=== PATIENT | female | born 1940 | race Caucasian/White ===

== ENCOUNTER 2019-10-29 18:17 | Emergency (ER) | payer MEDICARE, OTHER ==
--- OUTSIDE RECORDS SUMMARY | 2019-10-29 18:49 | XMS REPORT | Continuity of Care Document ---
:1940 External Reference #:[id number] Author Name Ban Gonsalves NP (transmitted by agent of provider Victoria Workman) Address [address] [facility], [place] [address] Care Team Providers Name Role Phone Niharika Washburn MD - Internal Medicine Care Team Information Database Architect Problems Description No Information Available Social History Type Date Description Comments Sex Unknown Tobacco Use Start: Unknown Never Smoked Cigarettes Smoking Status Reviewed: 09/22/19 Never Smoked Cigarettes ETOH Use Rarely consumes alcohol Tobacco Use Start: Unknown Patient has never smoked Recreational Drug Use Denies Drug Use Exercise Type/Frequency Exercises regularly walk 30 minutes daily Allergies, Adverse Reactions, Alerts Active Allergies Reaction Severity Comments Date Tramadol vomiting 07/04/2019 Medications Active Medications SIG Qnty Indications Ordering Date Provider Pantoprazole Sodium 1 by mouth every Niharika Washburn MD 08/01/2019 day, alternating 20mg Tablets DR with 40 mg every other day Alendronate Sodium 1 by mouth weekly 12tabs Niharika Washburn MD 35mg Tablets Pravastatin Sodium 1 tablet once daily 30tabs Niharika Washburn MD at bedtime 20mg Tablets Calcium taken only when Unknown dietary calcium is [id number] below 1200 mg /day Chewtabs Vitamin K2 1 by mouth twice Unknown 100mcg daily Capsules Coq10 1 by mouth once a Unknown 100mg Capsules day Fish Oil 1 tab by mouth Unknown 1000mg twice a day Capsules Pantoprazole Sodium 1 by mouth every Unknown day, alternating 40mg Tablets DR with 20 mg tablets every other day. Vitamin D 1 tablet twice Unknown 1000Unit daily Tablets Cranberry 1 by mouth every Unknown 425mg day to prevent UTI Capsules Probiotic 50 billion twice a Unknown Capsules week Melatonin 1 by mouth at Unknown 1mg bedtime Capsules Ipratropium [place] 2 sprays to each Unknown nare twice a day 0.06% Solution Magnesium take one Unknown 300mg capsule/tablet Capsules daily by mouth History Medications Vitamin A Palmitate 2 by mouth every Niharika Washburn MD 08/01/2019 - 2018 day [id number] Tablets Immunizations Description No Information Available Vital Signs Date Vital Result Comment 09/21/2019 1:04pm Height 60 inches 5'0" Weight 134.00 lb Heart Rate 80 /min BP Systolic 139 mmHg BP Diastolic 67 mmHg Body Temperature 97.0 F O2 % BldC Oximetry 99 % BMI (Body Mass Index) 26.2 kg/m2 09/13/2019 2:30pm Height 60 inches 5'0" Weight 133.38 lb Heart Rate 88 /min BP Systolic Sitting 134 mmHg BP Diastolic Sitting 77 mmHg Body Temperature 97.8 F O2 % BldC Oximetry 98 % BMI (Body Mass Index) 26.0 kg/m2 Results Test Acquired Date Facility Test Result H/L Range Note Anti-Thyroid 09/21/2019 [facility] Thyroperoxidase AB <pending> Antibodies [address] [place] [address] [phone] Thyroglobulin AB <pending> Laboratory test 09/21/2019 [facility] CRP High <pending> finding [address] [place] [address] [phone] T3 Free <pending> T3 Reverse <pending> T3 Total <pending> Thyroid Panel 09/21/2019 [facility] Free T4 (Free <pending> [address] Thyroxine) [place] [address] [phone] Thyroxine <pending> TSH (Thyroid Stim Horm) <pending> Vitamin B12 And Folate 09/21/2019 [facility] Vitamin B12 < pending> Serum [address] [place] [address] [phone] Folic Acid (Folate) <pending> CBC Auto 08/02/2019 [facility] White Blood 7.1 10^3/uL Normal 3.5-10.[address] [place] [address] [phone] Red Blood Count 4.74 10^6/uL Normal 3.70-4.87 Hemoglobin 13.9 g/dL Normal 12.0-16.0 Hematocrit 42 % Normal 35-47 Mean Corpuscular Volume 88 fL Normal 80-97 Mean Corpuscular Hemoglobin 29 pg Normal 27-31 Mean Corpuscular HGB Conc 34 g/dL Normal 31-36 Red Cell Distribution Width 14 % Normal 10-15 Platelet Count 238 10^3/uL Normal 150-450 Mean Platelet Volume 8.3 fL Normal 7.4-10.4 Abs Neutrophils 5.1 10^3/uL Normal 1.5-7.7 Abs Lymphocytes 0.8 10^3/uL Low 1.0-4.8 Abs Monocytes 0.7 10^3/uL Normal 0-0.8 Abs Eosinophils 0.4 10^3/uL Normal 0-0.6 Abs Basophils 0.0 10^3/uL Normal 0-0.2 Abs Nucleated RBC 0.0 10^3/uL Granulocyte % 71.5 % Lymphocyte % 11.9 % Monocyte % 9.9 % Eosinophil % 6.1 % Basophil % 0.6 % Nucleated Red Blood Cells % 0.0 Comp Metabolic 08/02/2019 [facility] Sodium 136 mmol/L Normal 135-[address] [place] [address] [phone] Potassium 4.4 mmol/L Normal 3.5-5.0 Chloride 103 mmol/L Normal 101-111 Co2 Carbon Dioxide 30 mmol/L Normal 22-32 Anion Gap 3 mmol/L Normal 2-11 Glucose 97 mg/dL Normal 70-100 Blood Urea Nitrogen 20 mg/dL Normal 6-24 Creatinine 0.78 mg/dL Normal 0.51-0.95 BUN/Creatinine Ratio 25.6 High 8-20 Calcium 9.2 mg/dL Normal 8.6-10.3 Total Protein 6.5 g/dL Normal 6.4-8.9 Albumin 4.4 g/dL Normal 3.2-5.2 Globulin 2.1 g/dL Normal 2-4 Albumin/Globulin Ratio 2.1 Normal 1-3 Total Bilirubin 0.80 mg/dL Normal 0.2-1.0 Alkaline Phosphatase 54 U/L Normal 34-104 Alt 14 U/L Normal 7-52 Ast 17 U/L Normal 13-39 Egfr Non- 71.2 >60 Egfr 86.2 >60 1 Laboratory 08/02/2019 [facility] TSH (Thyroid 1.25 Normal 0.34 -5.60 test finding [address] Stim Horm) mcIU/[place] [address] [phone] Laboratory 07/14/2019 [facility] In House Hemoglobin 6.0 5-7 test finding A1c 1 Because ethnic data is not always readily available, this report includes an eGFR for both -Americans and non- Americans. The National Kidney Disease Education Program (NKDEP) does not endorse the use of the MDRD equation for patients that are not between the ages of 18 and 70, are , have extremes of body size, muscle mass, or nutritional status, or are non- or non-. According to the National Kidney Foundation, irrespective of diagnosis, the stage of the disease is based on the level of kidney function: Stage Description GFR(mL/min/1.73 m(2)) 1 Kidney damage with normal or decreased GFR 90 2 Kidney damage with mild decrease in GFR 60-89 3 Moderate decrease in GFR 30-59 4 Severe decrease in GFR 15-29 5 Kidney failure <15 (or dialysis) Procedures Date Code Description Status 07/29/2019 25160725 Mammogram Completed 09/10/2018 [id number] Bone Mineral Density Test Completed 01/27/2017 [id number] Bone Mineral Density Test Completed 02/07/2015 [id number] Bone Mineral Density Test Completed 09/25/2010 [id number] Bone Mineral Density Test Completed Medical Devices Description No Information Available Encounters Type Date Location Provider Dx Diagnosis Office Visit 09/13/2019 [facility] Josie Washburn MD M81.0 Age-related 2:20p Medicine - [facility] osteoporosis w/o current pathological fracture R19.7 Diarrhea, unspecified Office Visit 08/01/2019 2:20p [facility] Washburn [facility] R53.83 [facility] Di[facility], unspecified Office Visit 07/14/2019 3:00p [facility] Jos[facility] Washburn M81.0 [facility] fracture E78.5 Hyperlipidemia, unspecified K21.9 Gastro-esophageal reflux disease without esophagitis R73.03 Prediabetes Office Visit 07/04/2019 11:00a [facility] Tin Ritchie, S80.01xA Contusion of at Lucille Carter right knee, initial encounter S76.111A Strain of right quadriceps muscle, fascia and tendon, init Assessments Date Code Description Provider 09/21/2019 R53.83 Other fatigue Ban Gonsalves NP 09/21/2019 K21.9 Gastro-esophageal reflux disease without Ban Gonsalves NP esophagitis 09/21/2019 R73.03 Prediabetes Ban Gonsalves NP 09/21/2019 R19.7 Diarrhea, unspecified Ban Gonsalves NP 09/13/2019 M81.0 Age-related osteoporosis without current Niharika Washburn MD pathological fracture 09/13/2019 R19.7 Diarrhea, unspecified Niharika Washburn MD 08/30/2019 M81.0 Age-related osteoporosis without current Xander Meade MD pathological fracture 08/30/2019 M54.6 Pain in thoracic spine Xander Meade MD 08/01/2019 R53.83 Other fatigue Niharika Washburn MD 08/01/2019 R19.7 Diarrhea, unspecified Niharika Washburn MD 07/14/2019 M81.0 Age-related osteoporosis without current Niharika Washburn MD pathological fracture 07/14/2019 E78.5 Hyperlipidemia, unspecified Niharika Washburn MD 07/14/2019 K21.9 Gastro-esophageal reflux disease without Niharika Washburn MD esophagitis 07/14/2019 R73.03 Prediabetes Niharika Washburn MD 07/04/2019 S80.01xA Contusion of right knee, initial encounter Tin Ritchie M.D. 07/04/2019 S76.111A Strain of right quadriceps muscle, fascia and Tin Ritchie M.D. tendon, initial encounter Plan of Treatment Future Appointment(s):10/25/2019 11:00 am - Ban Gonsalves NP at [facility] [place]09/21/2019 - Ban Gonsalves, NPR53.83 Other fatigueNew Labs :Anti-Thyroid Antibodies Screen, Ordered: 09/21/19CRP High Sensitivity, Ordered : 09/21/19T3 Free, Ordered: 09/21/19T3 Reverse, Ordered: 09/21/19T3 Total, Ordered: 09/21/19Thyroid Panel, Ordered: 09/21/19Vitamin B12 And Folate Serum, Ordered: 09/21/19Follow up:follow up in 4 weeks - 45 minutesRecommendations: Fatigue is multi-factorial food sensitivities can play a role. An elimination diet is a validated approach to try to pin point food sensitivities. Increase healthy fats in the diet with cold pressed extra virgin olive oil, flax seed, hemp oil, fish oil (wild caught EPA/DHA). Nuts, seeds, avocado. Stress can play a large role in fatigue. Daily stress relaxation techniques. Sleep: sleeping 8 hours a day. Exercise: 30-60 minutes daily of exercise. Keeping your blood sugar stable removing high glycemic foods. Adrenal fatigue (HPA [place] dysregulation) - Lifestyle changes can make a difference. Stress is a huge class b driver. Sleep is very important as is diet and exercise. Consider stress reduction techniques. Screening Tests: It is important to be up to date on your screening tests for your age Great Resources: [employer] - free 10 week online program - HIGHLY recommend www.[employer] - low carb/keto website with meal plans, visual guides, and videos - lots of FREE resources Recommended Reading: Dr. Armendariz The End of Alzheimers Cookbooks; Dr. Fabian - Cooking for Life Dr. Mitchell Gonzalez??s - Ketotarian Dr. Castro - Fat for Fuel or KetoFast COOKBOOKS - Podcasts: Broken Brain Series The [facility] Farmacy Focus should be on NUTRIENT DENSE foods. Low carb - goal to start with 30 - 50 grams of carbs gfawvG29.9 Gastro-esophageal reflux disease without esophagitisRecommendations:A functional medicine approach to GERD 1. Food sensitivities Sensitivities, especially to things like gluten or dairy, inhibit your digestion. When your body can??t digest its food, the food sits in your stomach and can??t pass through the rest of your system. This excess of food in your stomach cancause acid reflux. I recommend that all of my patients remove gluten and dairy from their diets, and for some with complex chronic diseases I highly recommend removing all grains and legumes from the diet as well. Don??t eat within 3 hours before bed. 2. Poor Diet GERD is a modern day disease. Ourhunter/gatherer ancestors didn??t have it, and since our genes haven??t changed, we should consider one thing that has changed completely: our diet. Certain foods aggravate the symptoms of GERD, especially alcohol, caffeine , and fried foods. Additionally, overindulging in these foods leads to weight gain. Excess weight pushes up against your stomach, causing your LES to spasm and let stomach acid spill out. Forego processed food for real, whole foods. Try an elimination diet to see which foods exacerbate your symptoms. Ditch alcohol, fried foods, and acidic substances like coffee for good. And of course , pay attention to your body and learn to recognize its hunger and satiety signals. Eliminate alcohol, caffeine, citrus, tomato-based, and spicy foods. 3. Too little stomach acid Contrary to popular belief, GERD is often not caused by an overproduction of stomach acid. Stomach acid doesn??t wind up in your esophagus because it spills out due to excess. It spills out because the LES relaxes when it shouldn??t. Too little stomach acid however is a large contributor to GERD, as it prevents digestion. Stomach acid has an important role in the body. Not only does it break food down into amino acids, it also kills bacteria, yeast, viruses, and parasites that enter our digestive tract. Low stomach acid is linked to yeast overgrowth, B12 deficiency, parasites, and even anxiety and depression. Try supplementing with hydrochloric acid (HCL), which is the main digestive acid in the stomach. I??ve found that most symptoms of GERD disappear with HCL supplementation. Please see the HCL challenge instructions 4. Stress Often overlooked, stress has a profound effect on the body. It manifests in physical symptoms such as an erratic, racing heartbeat, muscle tension and twitches, and digestive issues like diarrhea and reflux. I suggest to all my patients that they prioritize stress reduction. Take care of yourself by adopting some stress-relieving strategies, such as exercise, meditation, and art. If you are having trouble relaxing, try a yoga class or a guided meditation. 5. Small IntestinalBacteria Overgrowth (SIBO) Our intestinal microflora are central to our wellbeing. An imbalance in the types and quantities of certain bacteria within our digestive tract can lead to all kinds of gastric complications. It has long been understood that H. pylori bacteria are the major cause of peptic ulcers (painful sores in the stomach and small intestinal lining), and it is beginning to be suspected that they are involved in GERD. Try Some Natural Remedies to Help Soothe the Gut Take 2 to 3 capsules of digestive enzymes with each meal. Re-inoculate the gut with healthy bacteria by using probiotics. Try 75 mg of zinc carnosine twice a day between meals ?? this has been extensively studied and is used frequently in [place]. Take 3 to 5 grams of glutamine powder in water twice a day to help heal the gut lining. Try 200 to 400 mg of magnesium citrate or glycinate twice a day.R73.03 PrediabetesRecommendations:Natural ways to improve blood sugar balance You don??t have to settle for a future of diabetes. Intervene now with these tips for restoring a healthy blood sugar/insulin balance. 1. Find your baseline. The labs I run on my patients to assess their blood sugar balance and check for insulin resistance are: Fasting blood sugar: Optimal Range: 75 to 90 mg/dL Hgb A1C: Optimal Range: < 5.3 percent Triglycerides: Optimal Range: &lt ; 100 mg/dL HDL: Optimal Range: 59 to 100 mg/dL 2. Sip on matcha. EGCGis a compound in green tea, EGCG has demonstrated a stabilizing effect on blood sugar levels. Drinking the whole green tea leaf in the form of matcha powder is a great way to up your ECGC intake 3. Try alpha-lipoic acid. In several studies , alpha-lipoic acid supplements helped balance blood sugar levels and improved insulin resistance. This antioxidant also strengthens immunity, improves energy production in cells, protects brain cells against excitotoxicity, and helps the body remove excess toxic metals. For blood sugar control, take 200 milligrams three times a day. 4. Take magnesium. Accordingto research published in the medical journal Circulation, in a group of nearly 5,000 people, those who took higher levels of magnesium over a period of 15 years had a decreased risk of metabolic syndrome, a condition that is often a precursor to diabetes. A similar study, published in the [place] Journal of Epidemiology, followed more than 1,000 healthy adults for five years and found that greater magnesium intake improved insulin sensitivity. Other studies have shown that magnesium improves triglycerides and high blood pressure ?? two other hallmarks of metabolic syndrome and diabetes. 5. Add chromium. When chromium levels are low , good cholesterol tends to drop and the risk of insulin resistance, as well as triglyceride levels, go up. Chromium supplementation has been shown to improve blood sugar receptor function. The best food sources of chromium include onions , tomatoes, potatoes, and seavegetables. 6. Increase Nrf-2. The protein Nrf-2 plays a role in regulating antioxidant gene induction by turning on genes that are responsible for antioxidant and detox pathways. When Nrf-2 is activated, inflammation tends to subside. There are many antioxidant rich foods that tend to activate Nrf-2, including: EGCG from green tea Quercetin from apples Curcumin from turmeric Resveratrol from grapesRosmarinic acid from jensen L- sulforaphane from broccoli Thiosulfonateallicin from garlic 7. Bring in vitamin E. This fat-soluble tocopherol has been shown to support insulin sensitivity. Standard doses range between 600 and 900 milligrams. 8. Sprinkle cinnamon. Proanthocyanidin, a bioflavonoid found in cinnamon, may alter the insulin-signaling activity in fat cells, making it a potential diabetes buster. The spice has also been shown to significantly reduce blood sugar levels and triglycerides in people with type 2 diabetes. 9. Seal and heal the gut. Your gut health and blood sugar balance are inextricably connected ?? one study found that transplanting the microbiome of diabetic mice into healthy mice made the recipients diabetic! Among the culprits are advanced glycation end products (AGE) ?? harmful compounds that have the potential to cause leaky gut. A high sugar diet can also tip your microbiome in the wrong direction, causing lynn overgrowth, which is also linked to blood sugar problems. What??s good for your gut is good for your blood sugar, and vice versa. 10. Get more sun. Most people have low vitamin D levels, which can cause a host of problems, but in one study, supplementing with vitamin D for 12 weeks decreased body fat by 7 percent, and lower weight correlates with better blood sugar control. Low D levels have also been linked to metabolic syndrome. Aim for 60 to 80ng/mL per day. 11. Eat more healthy fats. One study found that higher blood sugar in non- diabetics decreased function in areas of the brain affected by Alzheimer??s disease (AD). This is one reason why Alzheimer??s is often referred to in the medical literature as ??type 3 diabetes.?? On the other hand, a ketogenic diet ? ? where fat, not sugar, is your primary source of energy ?? has been shown to do some remarkable things for your brain health. Healthy fats provide a slow, sustainable form of energy, subverting the more drastic ups and downs that can happen with sugar burning. Humans were meant to rely more on fat and less on sugar ?? for example, babies primarily use the fat in breast milk for brain development and energy. From a biological and evolutionary perspective, the most sustainable form of energy for optimal brain health as well as blood sugar control is healthy natural fat. 12. Take B-vitamins for the win. Methylation is a complex process that supports many crucial function in thebody, including healthy blood sugar balance. Activated B vitamins ?? like B9 L-Methylfolate (L-5 -MTHF) and B6 Lwuknckdi-4-Wcmbmbqeu (P5P) ?? are a great way to support methylation pathways. Food medicines to focus on are spinach, okra, and turnip greens, and meats like chicken liver or grass-fed beef liver, which have the highest levels of bioavailable B vitamins. 13. Activate your PPARs. Studies suggest that PPARs, or peroxisome proliferator-activated receptors, may help improve inflammatory conditions such as atherosclerosis, asthma, colitis, MS, and other autoimmune conditions. Some PPAR activators for you to bring into your life: wild-caught fish, green tea, astragalus, wilson, and sea buckthorn. 14. Get your omega-3s on. You??ve probably heard that omega-3 fatty acids can lower the risk ofstroke and heart attacks, but these healthy fats most prevalent in fish oil also convert the potentially harmful very low-density lipoproteins (VLDL), which are linked to diabetes, into less dangerous low- density lipoproteins (LDL). 15. Never forget adaptogens! Adaptogens are awesome at balancing outhormones and inflammation.R19.7 Diarrhea, unspecifiedRecommendations:Good Probiotics Companies: [employer] Functional Status Description No Information Available Mental Status Description No Information Available Referrals Refer to Reason for Referral Status Appt Date Windy Neal M.D. Closed 08/18/2019 [address] [place] [address] [phone] Drake Walker MD Recurrent nasal congestion ENT Received Partial OFFICE LVM FOR PT TO CALL THEM 08/04/[address] [place] [address] [phone] Xander Meade MD Patient Notified 08/30/[address] [place] [address] [phone]
--- OUTSIDE RECORDS SUMMARY | 2019-10-29 18:49 | XMS REPORT | Continuity of Care Document ---
:1940 External Reference #:[id number] Author Name Ban Gonsalves NP (transmitted by agent of provider Georgette Argueta) Address 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 No Information Available Social History Type Date Description Comments Sex Unknown Tobacco Use Start: Unknown Never Smoked Cigarettes Smoking Status Reviewed: 10/25/19 Never Smoked Cigarettes ETOH Use Rarely consumes alcohol Tobacco Use Start: Unknown Patient has never smoked Recreational Drug Use Denies Drug Use Exercise Type/Frequency Exercises regularly walk 30 minutes daily Allergies, Adverse Reactions, Alerts Active Allergies Reaction Severity Comments Date Tramadol vomiting 07/04/2019 Medications Active Medications SIG Qnty Indications Ordering Date Provider Neomycin Sulfate 1 by mouth twice a 28tabs K58.0 Jazmin Quinn, 10/25/2019 day 500mg Tablets Xifaxan take one tablet by 42tabs K58.0 Jazmin Quinn, 10/25/2019 550mg Tablets mouth three times a MD day for 2 weeks Pantoprazole Sodium 1 by mouth every Niharika Washburn MD 08/01/2019 day, alternating 20mg Tablets DR with 40 mg every other day Berberine Complex Unknown [phone] Capsules Vitamin C 1 by mouth every Unknown 500mg day Capsules Magnesium take one Unknown 300mg capsule/tablet Capsules daily by mouth Ipratropium [place] 2 sprays to each Unknown nare twice a day 0.06% Solution Melatonin 1 by mouth at Unknown 1mg bedtime Capsules Probiotic 50 billion twice a Unknown Capsules week Cranberry 1 by mouth every Unknown 425mg day to prevent UTI Capsules Vitamin D 1 tablet twice Unknown 1000Unit daily Tablets Pantoprazole Sodium 1 by mouth every Unknown day, alternating 40mg Tablets DR with 20 mg tablets every other day. Fish Oil 1 tab by mouth Unknown 1000mg twice a day Capsules Coq10 1 by mouth once a Unknown 100mg Capsules day Vitamin K2 1 by mouth twice Unknown 100mcg daily Capsules Calcium taken only when Unknown dietary calcium is [id number] below 1200 mg /day Chewtabs Pravastatin Sodium 1 tablet once daily 90tabs Niharika Washburn MD at bedtime 20mg Tablets Alendronate Sodium 1 by mouth weekly 12tabs Niharika Washburn MD 35mg Tablets History Medications Vitamin A Palmitate 2 by mouth every Niharika Washburn MD 08/01/2019 - 2018 day [id number] Tablets Immunizations Description No Information Available Vital Signs Date Vital Result Comment 10/25/2019 10:45am Height 60 inches 5'0" Weight 125.12 lb Heart Rate 82 /min BP Systolic 138 mmHg BP Diastolic 76 mmHg Body Temperature 97.3 F O2 % BldC Oximetry 97 % BMI (Body Mass Index) 24.4 kg/m2 09/26/2019 2:40pm Height 60 inches 5'0" Weight 131.00 lb Heart Rate 90 /min BP Systolic Sitting 138 mmHg BP Diastolic Sitting 78 mmHg Body Temperature 98.3 F O2 % BldC Oximetry 96 % BMI (Body Mass Index) 25.6 kg/m2 Results Test Acquired Date Facility Test Result H/L Range Note Laboratory test 10/25/2019 [facility] Copper, <pending> finding [address] [place] [address] [phone] Zinc Serum <pending> Order 09/29/2019 [facility] In-House hemossure negative Laboratory test 09/27/2019 [facility] CRP High 1.18 mg/L < 2.[address] [place] [address] [phone] TSH (Thyroid Stim Horm) 1.81 mcIU/mL Normal 0.34-5.60 Free T4 (Free Thyroxine) 0.96 ng/dL Normal 0.61-1.12 Thyroxine 9.13 g/dL Normal 6.09-12.23 T3 Free 3.40 pg/mL Normal 2.5-3.9 T3 Total 103 ng/dL Normal 87-178 Folic Acid (Folate) > 20.00 ng/mL >3.99 Thyroperoxidase AB 0.56 IU/mL Normal <9 Vitamin B12 496 pg/mL Normal 180-914 1 Thyroglobulin AB 0.0 IU/mL <4.0 T3 Reverse 19 ng/dL 09-15 2 Anti-Thyroid 09/21/2019 [facility] Thyroperoxidase AB <pending> [place] [address] [phone] Thyroglobulin AB <pending> Laboratory test 09/21/2019 [facility] CRP High <pending> [place] [address] [phone] T3 Free <pending> T3 Reverse <pending> T3 Total <pending> Thyroid Panel 09/21/2019 [facility] Free T4 (Free <pending> DRIVE Thyroxine) [place] [address] [phone] Thyroxine <pending> TSH (Thyroid Stim Horm) <pending> Vitamin B12 And Folate 09/21/2019 [facility] Vitamin B12 < pending> [place] [address] [phone] Folic Acid (Folate) <pending> CBC Auto 08/02/2019 [facility] White Blood 7.1 10^3/uL Normal 3.5-10.[address] [place] [address] [phone] Red Blood Count 4.74 10^6/uL Normal 3.70-4.87 [...] Blood Cells % 0.0 Comp Metabolic 08/02/2019 [facility] Sodium 136 mmol/L Normal 135-[address] [place] [address] [phone] Potassium 4.4 mmol/L Normal 3.5-5.0 Chloride 103 [...] Egfr Non- 71.2 >60 Egfr 86.2 >60 3 Laboratory 08/02/2019 [facility] TSH (Thyroid 1.25 Normal 0.34 -5.60 test finding [address] Stim Horm) mcIU/[place] [address] [phone] Laboratory 07/14/2019 [facility] In House Hemoglobin 6.0 5-7 test finding A1c 1 Normal Range 180 to 914 Indeterminate Range 145 to 180 Deficient Range <145 2 ADDITIONAL INFORMATION This test was developed and its performance characteristics determined by [facility] in a manner consistent with CLIA requirements. This test has not been cleared or approved by the U.S. Food and Drug Administration. Test Performed by: [facility] [address] [place] [address] Radiation Protection Technician: Bola Rojas M.D. Ph.D.; CLIA# [id number] 3 Because ethnic data is not always readily [...] dialysis) Procedures Date Code Description Status 07/29/2019 [id number] Mammogram Completed 09/10/2018 [id number] Bone Mineral Density Test Completed 01/27/2017 [id number] Bone Mineral Density Test Completed 02/07/2015 [id number] Bone Mineral Density Test Completed 09/25/2010 [id number] Bone Mineral Density Test Completed Medical Devices Description No Information Available Encounters Type Date Location Provider Dx Diagnosis Office Visit 09/26/2019 [facility] Josie Washburn MD M25.552 Pain in left hip 2:40p Medicine - [facility] Office Visit 09/21/2019 [facility] Ban Gonsalves, R53.83 Other fatigue 1: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 [facility] 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 K21.9 Gastro-esophageal reflux disease without esophagitis R73.03 Prediabetes R19.7 Diarrhea, unspecified Office Visit 09/13/2019 2:20p Luis Washburn M81.0 Age-related Medicine - [facility] osteoporosis w/o current pathological fracture R19.7 Diarrhea, unspecified Office Visit 08/30/2019 11:00a [place] Terrell Coch, M81.0 Age- related Endocrinology of osteoporosis w/o [facility] current pathological fracture M54.6 Pain in thoracic spine Office Visit 08/01/2019 2:20p [facility] Internal Niharika Washburn MD R53.83 Other fatigue Medicine - [facility] R19.7 Diarrhea, unspecified Office Visit 07/14/2019 3:00p [facility] Internal Niharika Washburn M81.0 Age-related Medicine - [facility] osteoporosis w/o current pathological fracture E78.5 Hyperlipidemia, unspecified K21.9 Gastro-esophageal reflux disease without esophagitis R73.03 Prediabetes Office Visit 07/04/2019 11:00a [facility] Dirk Chau, S80.01xA Contusion of at Lucille Carter right knee, initial encounter S76.111A Strain of right quadriceps muscle, fascia and tendon, init Assessments Date Code Description Provider 10/25/2019 A04.8 Other specified bacterial intestinal Ban Gonsalves NP infections 10/25/2019 R73.03 Prediabetes Ban Gonsalves NP 10/25/2019 R30.0 Dysuria Ban Gonsalves NP 10/25/2019 R53.83 Other fatigue Ban Gonsalves NP 10/25/2019 K58.0 Irritable bowel syndrome with diarrhea Ban Gonsalves NP 09/29/2019 R19.7 Diarrhea, unspecified Niharika Washburn MD 09/26/2019 M25.552 Pain in left hip Niharika Washburn MD 09/21/2019 R53.83 Other fatigue Ban Gonsalves NP [...] tendon, initial encounter Plan of Treatment Future Appointment(s):11/08/2019 11:00 am - [facility]10/25/2019 - Ban Gonsalves NPA04.8 Other specified bacterial intestinal infectionsRecommendations:Plan for SIBO Protocol Will send supplements through rxwnshdycM90.03 PrediabetesRecommendations:continue low carb diet with the focus on 30-50 grams/day Nutrient Dense whole foods, low to no sugarExercise 5x weekly Ok to add back in coffee. Ok to add in sweet potatoes, squash, beets - add in nutrient dense foods - add in sardines, liver, salmon handful of nuts a day Berberine 500 mg BIDR30.0 DysuriaRecommendations: I will call you later with urinalysis lhilbevY71.83 Other ezrfbztV38.0 Irritable bowel syndrome with diarrheaNew Medication:Neomycin Sulfate 500 mg - 1 by mouth twice a dayXifaxan 550 mg - take one tablet by mouth three times a day for 2 weeksFollow up:follow up 2 - 3 weeks - 45 minutes Functional Status Description No Information Available Mental Status Description No Information Available Referrals Refer to Reason for Referral Status Appt Date Elissa Tubbs MD Sent [address] [place] [phone] Windy Neal M.D. Closed 08/18/[address] [place] [address] [phone] Drake Walker MD Recurrent nasal congestion ENT Received Partial OFFICE LVM FOR PT TO CALL THEM 08/04/[address] [place] [address] [phone] Xander Meade MD Patient Notified 08/30/[address] [place] [address] [phone]
--- OUTSIDE RECORDS SUMMARY | 2019-10-29 18:49 | XMS REPORT | Continuity of Care Document ---
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 Problems Description No Information Available Social History Type Date Description Comments Sex Unknown Tobacco Use Start: Unknown Never Smoked Cigarettes Tobacco Use Start: Unknown Never Smoked Cigars Tobacco Use Start: Unknown Never Smoked A Pipe Smokeless Tobacco Never Used Smokeless Tobacco ETOH Use Currently rarely consumes alcohol Tobacco Use Start: Unknown Patient has never smoked Smoking Status Reviewed: 10/27/19 Patient has never smoked Allergies, Adverse Reactions, Alerts Active Allergies Reaction Severity Comments Date Tramadol Vomitting 08/25/2019 Medications Active Medications SIG Qnty Indications Ordering Date Provider Ipratropium [place] 1-2 sprays to each 30ml Drake Brown 09/06/2019 nostril twice a day MD Aaron 0.03% Solution as needed for runny nose Alendronate Sodium 1/2 tab once weekly Unknown 70mg Tablets Pantoprazole Sodium 1 20 mg tab Unknown alternating 20mg Tablets DR everyother day with a 40 mg tab Coq-10 Fast Dissolve 2 tabs daily Unknown 50mg Tablets Dispers Vitamin K2 2 by mouth every day Unknown 100mcg Capsules Vitamin D daily Unknown 2000Unit Capsules Probiotic Acidophilus 1 by mouth every day Unknown Capsules Fish Oil 1 by mouth every day Unknown 1000mg Capsules History Medications Ipratropium [place] 2 sprays each 30ml Drake Walker, 08/25/2019 - 0.06% nostril twice a MD 09/26/2019 Solution day as needed for runny nose Immunizations Description No Information Available Vital Signs Date Vital Result Comment 08/25/2019 1:58pm Weight 130.00 lb Weight 58.968 kg Height 60 inches 5'0" Height in cm's 152.4 cm BMI (Body Mass Index) 25.4 kg/m2 Results Description No Information Available Procedures Date Code Description Status 08/25/2019 23478 Removal Wax Impaction Completed Medical Devices Description No Information Available Encounters Type Date Location Provider Dx Diagnosis Office Visit 10/27/2019 [place],After Drake Brown K11.7 Disturbances of 2:15p 11/23/07 MD Aaron salivary secretion R43.8 Other disturbances of smell and taste Office Visit 09/27/2019 1:30p [place],After 11/23/07 Ashely Sullivan H61.23 Impacted REMI Huerta, bilateral 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 G47.33 Obstructive sleep apnea (adult) (pediatric) H90.3 Sensorineural hearing loss, bilateral Office Visit 08/25/2019 1:45p [place],After 11/23/07 Drake Brown H61.23 MD camille Gonzalez, bilateral 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 G47.33 Obstructive sleep apnea (adult) (pediatric) Assessments Date Code Description Provider 10/27/2019 K11.7 Disturbances of salivary secretion Drake Walker MD 10/27/2019 R43.8 Other disturbances of smell and taste Drake Walker MD 09/27/2019 H61.23 Impacted cerumen, bilateral Ashely Huerta PA-C 09/27/2019 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
--- OUTSIDE RECORDS SUMMARY | 2019-10-29 18:49 | XMS REPORT | Continuity of Care Document ---
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 [phone] Problems Description No Information Available Social History Type Date Description Comments Sex Unknown Tobacco Use Start: Unknown Never Smoked Cigarettes Smoking Status Reviewed: 09/26/19 Never Smoked Cigarettes ETOH Use Rarely consumes [...] taken only when Unknown dietary calcium is [id number] below 1200 mg /day Chewtabs Vitamin K2 [...] mouth at Unknown 1mg bedtime Capsules Ipratropium [place] 2 sprays to each Unknown nare twice a day 0.06% Solution Magnesium take one Unknown 300mg capsule/tablet Capsules daily by mouth History Medications Vitamin A Palmitate 2 by mouth every Niharika Washburn MD 08/01/2019 - 2018 day [id number] Tablets Immunizations Description No Information Available Vital Signs Date Vital Result Comment 09/26/2019 2:40pm Height 60 inches 5'0" Weight 131.00 lb Heart Rate 90 /min BP Systolic Sitting 138 mmHg BP Diastolic Sitting 78 mmHg Body Temperature 98.3 F O2 % BldC Oximetry 96 % BMI (Body Mass Index) 25.6 kg/m2 09/21/2019 1:04pm Height 60 inches 5'0" Weight 134.00 lb Heart Rate 80 /min BP Systolic 139 mmHg BP Diastolic 67 mmHg Body Temperature 97.0 F O2 % BldC Oximetry 99 % BMI (Body Mass Index) 26.2 kg/m2 Results Test Acquired Date Facility Test Result H/L Range Note Anti-Thyroid 09/21/2019 [facility] Thyroperoxidase AB <pending> Antibodies [address] [place] [address] [phone] Thyroglobulin AB <pending> Laboratory test 09/21/2019 [facility] CRP High <pending> finding [address] [place] [address] [phone] T3 Free <pending> T3 Reverse <pending> T3 Total <pending> Thyroid Panel 09/21/2019 [facility] Free T4 (Free <pending> [address] Thyroxine) [place] [address] [phone] Thyroxine <pending> TSH (Thyroid Stim Horm) <pending> Vitamin B12 And Folate 09/21/2019 [facility] Vitamin B12 < pending> Serum [address] [place] [address] [phone] Folic Acid (Folate) <pending> CBC Auto 08/02/2019 [facility] White Blood 7.1 10^3/uL Normal 3.5-10.[address] Count [place], [place] [address] [phone] Red Blood Count 4.74 10^6/uL Normal 3.70-4.87 [...] Blood Cells % 0.0 Comp Metabolic 08/02/2019 [facility] Sodium 136 mmol/L Normal 135-[address] [place] [address] [phone] Potassium 4.4 mmol/L Normal 3.5-5.0 Chloride 103 [...] >60 Egfr 86.2 >60 1 Laboratory 08/02/2019 [facility] TSH (Thyroid 1.25 Normal 0.34 -5.60 test finding [address] Stim Horm) mcIU/[place] [address] [phone] Laboratory 07/14/2019 [facility] In House Hemoglobin 6.0 5-7 test finding [...] dialysis) Procedures Date Code Description Status 07/29/2019 [id number] Mammogram Completed 09/10/2018 [id number] Bone Mineral Density Test Completed 01/27/2017 [id number] Bone Mineral Density Test Completed 02/07/2015 [id number] Bone Mineral Density Test Completed 09/25/2010 [id number] Bone Mineral Density Test Completed Medical Devices Description No Information Available Encounters Type Date Location Provider Dx Diagnosis Office Visit 09/13/2019 Luis Washburn MD M81.0 Age-related 2:20p Medicine - [facility] osteoporosis w/o current pathological fracture R19.7 Diarrhea, unspecified Office Visit 08/30/2019 11:00a [facility] Xander Meade M81.0 Age- related Endocrinology of osteoporosis w/o Luis current pathological fracture M54.6 Pain in thoracic spine Office Visit 08/01/2019 2:20p Luis Washburn MD R53.83 Other fatigue Medicine - [facility] R19.7 Diarrhea, unspecified Office Visit 07/14/2019 3:00p [facility] Internal Niharika Wu, M81.0 Age-related Medicine - [facility] osteoporosis w/o current pathological fracture E78.5 Hyperlipidemia, unspecified K21.9 Gastro-esophageal reflux disease without esophagitis R73.03 Prediabetes Office Visit 07/04/2019 11:00a [facility] Tin Ritcihe, S80.01xA Contusion of at [place] M.D. right knee, initial encounter S76.111A Strain of right quadriceps muscle, fascia and tendon, init Assessments Date Code Description Provider 09/26/2019 M25.552 Pain in left hip Niharika [...] 11:00 am - Ban Gonsalves NP at [facility]09/26/2019 - Niharika Washburn, MDM25.552 Pain in left hip Functional Status Description No Information Available Mental Status Description No Information Available Referrals Refer to Reason for Referral Status Appt Date Windy Neal M.D. Closed 08/18/[address] [place] [address] [phone] Drake Walker MD Recurrent nasal congestion ENT Received Partial OFFICE LVM FOR PT TO CALL THEM 08/04/[address] [place] [address] [phone] Xander Meade MD Patient Notified 08/30/[address] [place] [address] [phone]
--- OUTSIDE RECORDS SUMMARY | 2019-10-29 18:49 | XMS REPORT | Continuity of Care Document ---
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 Problems Description No Information Available Social History Type Date Description Comments Sex Unknown ETOH Use Rarely consumes alcohol Tobacco Use Start: Unknown Patient has never smoked Recreational Drug Use Denies Drug Use Smoking Status Reviewed: 09/13/19 Patient has never smoked Exercise Type/Frequency Exercises regularly walk 30 minutes [...] Tablets Pravastatin Sodium 1 tablet once daily Unknown at bedtime 20mg Tablets Calcium taken only when Unknown dietary calcium is [id number]-Rdmr below 1200 mg /day Chewtabs Vitamin K2 [...] mouth at Unknown 1mg bedtime Capsules Ipratropium [place] 2 sprays to each Unknown nare twice a day 0.06% Solution History Medications Vitamin A Palmitate 2 by mouth every Niharika Washburn MD 08/01/2019 - 2018 day 84626Bahc Tablets Immunizations Description No Information Available Vital Signs Date Vital Result Comment 09/13/2019 2:30pm Height 60 inches 5'0" Weight 133.38 lb Heart Rate 88 /min BP Systolic Sitting 134 mmHg BP Diastolic Sitting 77 mmHg Body Temperature 97.8 F O2 % BldC Oximetry 98 % BMI (Body Mass Index) 26.0 kg/m2 08/30/2019 10:47am Height 60 inches 5'0" Weight 132.00 lb w/ shoes Heart Rate 87 /min BP Systolic Sitting 133 mmHg BP Diastolic Sitting 79 mmHg BMI (Body Mass Index) 25.8 kg/m2 Results Test Date Facility Test Result H/L Range Note CBC Auto 08/02/2019 [facility] White Blood 7.1 10^3/uL Normal 3.5-10.[address] [place] [address] [phone] Red Blood Count 4.74 10^6/uL Normal 3.70-4.87 [...] Blood Cells % 0.0 Comp Metabolic 08/02/2019 [facility] Sodium 136 mmol/L Normal 135-[address] [place] [address] [phone] Potassium 4.4 mmol/L Normal 3.5-5.0 Chloride 103 [...] >60 Egfr 86.2 >60 1 Laboratory 08/02/2019 [facility] TSH (Thyroid 1.25 Normal 0.34 -5.60 test finding [address] Stim Horm) mcIU/[place] [address] [phone] Laboratory 07/14/2019 [facility] In House Hemoglobin 6.0 5-7 test finding [...] dialysis) Procedures Date Code Description Status 07/29/2019 [id number] Mammogram Completed 09/10/2018 [id number] Bone Mineral Density Test Completed 01/27/2017 [id number] Bone Mineral Density Test Completed 02/07/2015 [id number] Bone Mineral Density Test Completed 09/25/2010 [id number] Bone Mineral Density Test Completed Medical Devices Description No Information Available Encounters Type Date Location Provider Dx Diagnosis Office Visit 08/01/2019 [facility] Internal Niharika Washburn MD R53.83 Other fatigue 2:20p Medicine - [facility] R19.7 Diarrhea, unspecified Office Visit 07/14/2019 3:00p [facility] Internal Niharika Washburn M81.0 Age-related Medicine - [facility] osteoporosis w/o current pathological fracture E78.5 Hyperlipidemia, unspecified K21.9 Gastro-esophageal reflux disease without esophagitis R73.03 Prediabetes Office Visit 07/04/2019 11:00a [facility] Tin Ritchie, S80.01xA Contusion of at Lucille Carter right knee, initial encounter S76.111A Strain of right quadriceps muscle, fascia and tendon, init Assessments Date Code Description Provider 09/13/2019 M81.0 Age-related osteoporosis without current Niharika [...] tendon, initial encounter Plan of Treatment Future Appointment(s):09/21/2019 1:00 pm - Ban [facility]alves NP at [facility]08/30/2019 - Xander Meade, MDM81.0 Age-related osteoporosis without current pathological fractureNew Xrays:Dexa Bone Dens Axial Skeleton ( Hips, Pelvis, Spine), Scheduled: 08/23/20Follow up:1 yearInstructions:1. Chest X -ray today. 2. Repeat DEXA test in 1 year. 3. Return for a follow-up in 1 year. 4. Continue Fosamax 35mg weekly for now.M54.6 Pain in thoracic spine Functional Status Description No Information Available Mental Status Description No Information Available Referrals Refer to Reason for Referral Status Appt Date Jean Claude-Windy Mukherjee M.D. Closed 08/18/[address] [place], [place] [id number] [phone] Drake Walker MD Recurrent nasal congestion ENT Received Partial OFFICE LVM FOR PT TO CALL THEM 08/04/[address] [place], [place] [address] [phone] Xander Meade MD Patient Notified 08/30/[address] [place] [address] [phone]
--- OUTSIDE RECORDS SUMMARY | 2019-10-29 18:49 | XMS REPORT | Continuity of Care Document ---
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 No Information Available Social History [...] Tablets Pravastatin Sodium 1 tablet once daily 90tabs Niharika Washburn MD at bedtime 20mg Tablets Calcium taken only when Unknown dietary calcium is [id number] below 1200 mg /day Chewtabs Vitamin K2 [...] mouth at Unknown 1mg bedtime Capsules Ipratropium [place] 2 sprays to each Unknown nare twice a day 0.06% Solution Magnesium take one Unknown 300mg capsule/tablet Capsules daily by mouth History Medications Vitamin A Palmitate 2 by mouth every Niharika Washburn MD 08/01/2019 - 2018 day [id number] Tablets Immunizations Description No Information Available Vital [...] Date Facility Test Result H/L Range Note Order 09/29/2019 [facility] In-House hemossure negative Laboratory test 09/27/2019 [facility] CRP High 1.18 mg/L < 2.[address] [place] [address] [phone] TSH (Thyroid Stim Horm) 1.81 mcIU/mL Normal 0.34-5.60 Free T4 (Free Thyroxine) 0.96 ng/dL Normal 0.61-1.12 Thyroxine 9.13 g/dL Normal 6.09-12.23 T3 Free 3.40 pg/mL Normal 2.5-3.9 T3 Total 103 ng/dL Normal 87-178 Folic Acid (Folate) > 20.00 ng/mL >3.99 Thyroperoxidase AB 0.56 IU/mL Normal <9 Vitamin B12 496 pg/mL Normal 180-914 1 Thyroglobulin AB 0.0 IU/mL <4.0 T3 Reverse 19 ng/dL 10-24 2 Anti-Thyroid 09/21/2019 [facility] Thyroperoxidase AB <pending> Antibodies Screen [address] [place] [address] [phone] Thyroglobulin AB <pending> Laboratory test 09/21/2019 [facility] CRP High <pending> finding [address] [place] [address] [phone] T3 Free <pending> T3 Reverse <pending> T3 Total <pending> Thyroid Panel 09/21/2019 [facility] Free T4 (Free <pending> [address] Thyroxine) [place] [address] [phone] Thyroxine <pending> TSH (Thyroid Stim Horm) <pending> Vitamin B12 And Folate 09/21/2019 [facility] Vitamin B12 < pending> Serum [address] [place] [address] [phone] Folic Acid (Folate) <pending> CBC Auto 08/02/2019 [facility] White Blood 7.1 10^3/uL Normal 3.5-10.[address] [place] [address] [phone] Red Blood Count 4.74 10^6/uL Normal 3.70-4.87 [...] Blood Cells % 0.0 Comp Metabolic 08/02/2019 [facility] Sodium 136 mmol/L Normal 135-[address] [place] [address] [phone] Potassium 4.4 mmol/L Normal 3.5-5.0 Chloride 103 [...] >60 Egfr 86.2 >60 3 Laboratory 08/02/2019 [facility] TSH (Thyroid 1.25 Normal 0.34 -5.60 test finding [address] Stim Horm) mcIU/[place] [address] [phone] Laboratory 07/14/2019 [facility] In House Hemoglobin 6.0 5-7 test finding A1c 1 Normal Range 180 to 914 Indeterminate Range 145 to 180 Deficient Range <145 2 ADDITIONAL INFORMATION This test was developed and its performance characteristics determined by [facility] in a manner consistent with CLIA requirements. This test has not been cleared or approved by the U.S. Food and Drug Administration. Test Performed by: [facility] [address] [place] [address] Med Spec: Bola Rojas M.D. Ph.D.; CLIA# [id number] 3 Because ethnic data is not always [...] dialysis) Procedures Date Code Description Status 07/29/2019 56410327 Mammogram Completed 09/10/2018 [id number] Bone Mineral Density Test Completed 01/27/2017 [id number] Bone Mineral Density Test Completed 02/07/2015 [id number] Bone Mineral Density Test Completed 09/25/2010 [id number] Bone Mineral Density Test Completed Medical Devices Description No Information Available Encounters Type Date Location Provider Dx Diagnosis Office Visit 09/26/2019 [facility] Josie Washburn MD M25.552 Pain in left hip 2:40p Medicine - [facility] Office Visit 09/21/2019 [facility] Ban Gonsalves, R53.83 Other fatigue 1:00p [facility] [employer] K21.9 Gastro-esophageal reflux disease without esophagitis R73.03 Prediabetes R19.7 Diarrhea, unspecified Office Visit 09/13/2019 2:20p [facility] Josie Washburn M81.0 Age-related Medicine - [facility] osteoporosis w/o current pathological fracture R19.7 Diarrhea, unspecified Office Visit 08/30/2019 11:00a [place] [facility] Xander Meade M81.0 Age- related Endocrinology of osteoporosis w/o [facility] current pathological fracture M54.6 Pain in thoracic spine Office Visit 08/01/2019 2:20p [facility] Josie Washburn MD R53.83 Other [facility] Di[facility], unspecified Office Visit 07/14/2019 3:00p [facility] Josie Washburn M81.0 [facility]/o current pathological fracture E78.5 Hyperlipidemia, unspecified K21.9 Gastro-esophageal reflux disease without esophagitis R73.03 Prediabetes Office Visit 07/04/2019 11:00a [place] [facility] Tin Ritchie, S80.01xA Contusion of at Lucille Carter right knee, initial encounter S76.111A Strain of right quadriceps muscle, fascia and tendon, init Assessments Date Code Description Provider 09/29/2019 R19.7 Diarrhea, unspecified Niharika Washburn MD [...] 11:00 am - Ban Gonsalves [facility] at [facility]09/26/2019 - Niharika Washburn, MDM25.552 Pain in left hip Functional Status Description No Information Available Mental Status Description No Information Available Referrals Refer to Reason for Referral Status Appt Date Windy Neal M.D. Closed 08/18/[address] [place] [address] [phone] Drake Walker MD Recurrent nasal congestion ENT Received Partial OFFICE LVM FOR PT TO CALL THEM 08/04/[address] [place] [address] [phone] Xander Meade MD Patient Notified 08/30/[address] [place] [address] [phone]
--- OUTSIDE RECORDS SUMMARY | 2019-10-29 18:49 | XMS REPORT | Continuity of Care Document ---
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 No Information Available Social [...] taken only when Unknown dietary calcium is [id number] below 1200 mg /day Chewtabs Vitamin K2 [...] mouth at Unknown 1mg bedtime Capsules Ipratropium [place] 2 sprays to each Unknown nare twice a day 0.06% Solution Magnesium take one Unknown 300mg capsule/tablet Capsules daily by mouth History Medications Vitamin A Palmitate 2 by mouth every Niharika Washburn MD 08/01/2019 - 2018 day [id number] Tablets Immunizations Description No Information Available Vital [...] Test Result H/L Range Note Anti-Thyroid 09/21/2019 [facility] Thyroperoxidase AB <pending> Antibodies [address] [place] [address] [phone] Thyroglobulin AB <pending> Laboratory test 09/21/2019 [facility] CRP High <pending> finding [address] [place] [address] [phone] T3 Free <pending> T3 Reverse <pending> T3 Total <pending> Thyroid Panel 09/21/2019 [facility] Free T4 (Free <pending> [address] Thyroxine) [place] [address] [phone] Thyroxine <pending> TSH (Thyroid Stim Horm) <pending> Vitamin B12 And Folate 09/21/2019 [facility] Vitamin B12 < pending> Serum [address] [place] [address] [phone] Folic Acid (Folate) <pending> CBC Auto 08/02/2019 [facility] White Blood 7.1 10^3/uL Normal 3.5-10.[address] [place] [address] [phone] Red Blood Count 4.74 10^6/uL Normal 3.70-4.87 [...] Blood Cells % 0.0 Comp Metabolic 08/02/2019 [facility] Sodium 136 mmol/L Normal 135-[address] [place] [address] [phone] Potassium 4.4 mmol/L Normal 3.5-5.0 Chloride 103 [...] >60 Egfr 86.2 >60 1 Laboratory 08/02/2019 [facility] TSH (Thyroid 1.25 Normal 0.34 -5.60 test finding [address] Stim Horm) mcIU/[place] [address] [phone] Laboratory 07/14/2019 [facility] In House Hemoglobin 6.0 5-7 test [...] dialysis) Procedures Date Code Description Status 07/29/2019 [id number] Mammogram Completed 09/10/2018 [id number] Bone Mineral Density Test Completed 01/27/2017 [id number] Bone Mineral Density Test Completed 02/07/2015 [id number] Bone Mineral Density Test Completed 09/25/2010 [id number] Bone Mineral Density Test Completed Medical Devices Description No Information Available Encounters Type Date Location Provider Dx Diagnosis Office Visit 09/13/2019 [facility] Josie Washburn MD M81.0 Age-related 2:20p Medicine - [facility] osteoporosis w/o current pathological fracture R19.7 Diarrhea, unspecified Office Visit 08/01/2019 2:20p [facility] Josie Washburn MD R53.83 [facility] Diarrhea, unspecified Office Visit 07/14/2019 3:00p [facility] Josie Washburn M81.0 [facility]/o current pathological fracture E78.5 Hyperlipidemia, unspecified K21.9 Gastro-esophageal reflux disease without esophagitis R73.03 Prediabetes Office Visit 07/04/2019 11:00a [facility] Tin Ritchie, S80.01xA Contusion of at Gueydan Bonilla.D. right knee, initial encounter S76.111A Strain of right quadriceps muscle, fascia and tendon, init Assessments Date Code Description Provider 09/21/2019 R53.83 Other fatigue Ban Gonsalves, BEHAVIOR SPECIALIST 09/21/2019 K21.9 Gastro-esophageal reflux disease without Ban Gonsalves NP esophagitis 09/21/2019 R73.03 Prediabetes Ban Gonsalves, BEHAVIOR SPECIALIST 09/21/2019 R19.7 Diarrhea, unspecified Ban Gonsalves, JORDEN 09/13/2019 M81.0 Age-related osteoporosis without current Niharika [...] Washburn MD pathological fracture 07/14/2019 E78.5 Hyperlipidemia, carinaified Niharika Washburn MD 07/14/2019 K21.9 Gastro-esophageal reflux disease without Niharika Washburn MD esophagitis 07/14/2019 R73.03 Prediabetes Niharika Washburn MD 07/04/2019 S80.01xA Contusion of right knee, initial encounter Tin Ritchie M.D. 07/04/2019 S76.111A Strain of right quadriceps muscle, fascia and Tin Ritchie M.D. tendon, initial encounter Plan of Treatment 09/21/2019 - Ban Gonsalves, NPR53.83 Other fatigueNew Labs:Anti-Thyroid Antibodies Screen, Ordered: 09/21/19CRP High Sensitivity, Ordered: 09/21/19T3 Free, Ordered: 09/21/19T3 Reverse, Ordered: 09/21/19T3 Total, Ordered: Thyroid Panel, Ordered: 09/21/19Vitamin B12 And Folate Serum, Ordered: Follow up:follow up in 4 weeks - 45 minutesRecommendations:Fatigue is multi- factorial food sensitivities can play a role. An [...] removing high glycemic foods. Adrenal fatigue (HPA [place] dysregulation) - Lifestyle changes can make a difference. 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 Sleep is very important as is diet and exercise. Consider stress reduction techniques. Screening Tests: It is important to be up to date on your screening tests for your age Great Resources: The [employer] - free 10 week online program - HIGHLY recommend www.Pure [employer]lim[employer] - low carb/keto website with meal plans, visual guides, and videos - lots of FREE resources Recommended Reading: Dr. Armendariz The End of Alzheimers Cookbooks; Dr. Fabian - Cooking for Life Dr. Mitchell Gonzalez??s - Ketotariclement Castro - Fat for Fuel or KetoFast COOKBOOKS - Podcasts: Broken Brain Series The Doctors Farmacy Focus should be on NUTRIENT DENSE foods. Low carb - goal to start with 30 - 50 grams of carbs cwtiqJ64.9 Gastro-esophageal reflux disease without esophagitisRecommendations:A functional medicine [...] diabetes. A similar study, published in the [place] Journal of Epidemiology, followed more than 1,000 [...] like B9 L-Methylfolate (L-5 -MTHF) and B6 Rcpcebhdn-9-Kwifdavxy (P5P) ?? are a great way to [...] Appt Date Windy Neal M.D. Closed 08/18/[address] [place] [address] [phone] Drake Walker MD Recurrent nasal congestion ENT Received Partial OFFICE LVM FOR PT TO CALL THEM 08/04/[address] [place] [address] [phone] Xander Meade MD Patient Notified 08/30/[address] [place] [address] [phone]
--- OUTSIDE RECORDS SUMMARY | 2019-10-29 18:49 | XMS REPORT | Continuity of Care Document ---
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 Problems Description No Information Available Social History Type Date Description Comments Sex Unknown Tobacco Use Start: Unknown Never Smoked Cigarettes Tobacco Use Start: Unknown Never Smoked Cigars Tobacco Use Start: Unknown Never Smoked A Pipe Smokeless Tobacco Never Used Smokeless Tobacco ETOH Use Currently rarely consumes alcohol Tobacco Use Start: Unknown Patient has never smoked Smoking Status Reviewed: 09/26/19 Patient has never smoked Allergies, Adverse Reactions, Alerts Active Allergies Reaction Severity Comments Date Tramadol Vomitting 08/25/2019 Medications Active Medications SIG Qnty Indications Ordering Date Provider Ipratropium [place] 1-2 sprays to each 30ml Drake E. 09/06/2019 nostril twice a day MD Aaron [...] day Unknown 1000mg Capsules History Medications Ipratropium [place] 2 sprays each 30ml Drake EWilmar Walker 08/25/2019 - 0.06% nostril twice a MD 09/26/2019 Solution day as needed for runny nose Immunizations Description No Information Available Vital Signs Date Vital Result Comment 08/25/2019 1:58pm Weight 130.00 lb Weight 58.968 kg Height 60 inches 5'0" Height in cm's 152.4 cm BMI (Body Mass Index) 25.4 kg/m2 Results Description No Information Available Procedures Date Code Description Status 08/25/2019 95104 Removal Wax Impaction Completed Medical Devices Description No Information Available Encounters Type Date Location Provider Dx Diagnosis Office Visit 09/27/2019 [place] Ashely Huerta H61.23 Impacted cerumen , 1:30p 11/23/07 [facility] bilateral 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 G47.33 Obstructive sleep apnea (adult) (pediatric) H90.3 Sensorineural hearing loss, bilateral Office Visit 08/25/2019 1:45p [place] 11/23/07 Drake Brown H61.23 Claudia Walker MD cerumen, bilateral 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 G47.33 Obstructive sleep apnea (adult) (pediatric) Assessments Date Code Description Provider 09/27/2019 H61.23 Impacted cerumen, bilateral Ashely Huerta PA-C 09/27/2019 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 Ashely Huerta PA-C 09/27/2019 G47.33 Obstructive sleep apnea (adult) (pediatric) Ashely Huerta PA-C 09/27/2019 H90.3 Sensorineural hearing loss, bilateral Ashely Huerta PA-C 08/25/2019 H61.23 Impacted cerumen, bilateral Drake Walker MD 08/25/2019 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 To the best of her knowledge she is using 0.03 twice a day. She used the 0.06 dose only once and feltsleepy so she discontinued it. I recommend that she retry that up to 3 times a day to see if it provides more benefit. If she does feel sleepy again with her that she can discontinue. I then recommend that she go back to the 0.03 dose 3 times a day and see how that works. She has refills of both dosages and written instruction was provided regarding these instructions to help keep clear in her mind the plan of action. She expresses appreciation.G47.33 Obstructive sleep apnea (adult) (pediatric) Follow up:[facility] 1 month: consult options for improved CPAP use if nasal sprays at higher doses fail to improve airway and reduce rhinorrhea.H90.3 Sensorineural hearing loss, bilateralComments:09/27/2019 - HEARING AID DISPENSERS She purchased an O[employer] hearing aid in [place] approximately 1-2 years ago. She has not had it adjusted in a long time and has also ran out of batteries and cannot find new ones. I directed her to [employer] or [employer] and if she cannot find the batteries instructedher to ask the pharmacist. I also provided her a list of local unemployment insurance hearing officer's so that theycan adjust and maintain her hearing aids. Functional Status Description No Information Available Mental Status Description No Information Available Referrals Description No Information Available
[2019-10-29 19:57] LABS: Urine Appearance Clear; Urine Bilirubin Negative (Negative); Urine Blood Negative (Negative); Urine Color Colorless; Urine Glucose Negative (Negative); Urine Ketones Trace (Negative); Urine Nitrite Negative (Negative); Urine Protein Negative (Negative); Urine Specific Gravity 1.002 (1.010-1.030); Urine Urobilinogen Negative (Negative)
--- NOTE | 2019-10-29 21:09 | ED ---
GI/ HPI - HPI Summary HPI Summary: This patient is a 78 year old female managing a UTI presenting to [facility] with a chief complaint of decreased urinary output. She states she was trying to follow the directions of a new low carb diet and it may have impacted her. She states at this time she was trying to urinate she was feeling drowsy and experiencing a headache. Per her previous records her medication, Macrobid, is appropriate for her E Coli UTI (per culture). She states she experienced abdominal cramping with the medication so she was concerned she may need to stop it.. She was also concerned about her blood glucose due to being prediabetic. Presents with son in law. - History of Current Complaint Chief Complaint: EDGeneral Time Seen by Provider: 10/29/19 20:43 Stated Complaint: POSS LOW BLOOD SUGAR PER PT Hx Obtained From: Patient Onset/Duration: Started Days Ago Pain Intensity: 6 - Allergy/Home Medications Allergies/Adverse Reactions: Allergies Allergy/AdvReac Type Severity Reaction Status Date / Time tramadol Allergy Vomiting Verified 10/29/19 18:38 opiods Allergy Fatigue Uncoded 10/29/19 18:38 PMH/Surg Hx/FS Hx/Imm Hx Musculoskeletal History: Reports: Hx Osteoporosis Denies: Hx Rheumatoid Arthritis EENT History: Denies: Hx Deafness Infectious Disease History: No Infectious Disease History: Denies: Traveled Outside the [place] in Last 30 Days - Social History Occupation: Retired Lives: With Family Review of Systems Positive: Other - Drowsiness Positive: Abdominal Pain Positive: other - Decreased urinary output Positive: Headache All Other Systems Reviewed And Are Negative: Yes Physical Exam - Summary Physical Exam Summary: Constitutional: Well-developed, Well-nourished, Alert. (-) Distressed Skin: Warm, Dry HENT: Normocephalic; Atraumatic Eyes: Conjunctiva normal Neck: Musculoskeletal ROM normal neck. (-) JVD, (-) Stridor, (-) Nuchal rigidity Cardio: Rhythm regular, rate normal, Heart sounds normal; Intact distal pulses; Radial pulses are 2+ and symmetric. (-) Murmur Pulmonary/Chest wall: Effort normal. (-) Respiratory distress, (-) Wheezes, (-) Rales Abd: Soft, (-) tenderness, (-) Distension, (-) Guarding, (-) Rebound Musculoskeletal: (-) Edema Lymph: (-) Cervical adenopathy Neuro: Alert, Oriented x3 Psych: Mood and affect Normal Triage Information Reviewed: Yes Vital Signs On Initial Exam: Initial Vitals Temp Pulse Resp BP Pulse Ox 97.8 F 97 16 176/111 95 10/29/19 18:27 10/29/19 18:27 10/29/19 18:27 10/29/19 18:27 10/29/19 18:27 Vital Signs Reviewed: Yes Procedures - Sedation Patient Received Moderate/Deep Sedation with Procedure: No Diagnostics - Vital Signs Vital Signs Temp Pulse Resp BP Pulse Ox 10/29/19 18:27 97.8 F 97 16 176/111 95 - Laboratory Lab Results: Lab Results 10/29/19 10/29/19 Range/Units 18:35 18:53 POC Glucose (mg/dL) 125 H (70-100) mg/dL Urine Color Colorless Urine Appearance Clear Urine pH 6.0 (5-9) Ur Specific [place] 1.002 L (1.010-1.030) Urine Protein Negative (Negative) Urine Ketones Trace A (Negative) Urine Blood Negative (Negative) Urine Nitrate Negative (Negative) Urine Bilirubin Negative (Negative) Urine Urobilinogen Negative (Negative) Ur Leukocyte Esterase Negative (Negative) Urine Glucose Negative (Negative) Lab Statement: Any lab studies that have been ordered have been reviewed, and results considered in the medical decision making process. - EKG 2135 Cardiac Rate: NL - 76 BPM EKG Rhythm: Sinus Rhythm Summary of EKG Findings: An EKG at 2135 reveals normal sinus rhythm 76 BPM, nml axis, nml intervals. No STEMI. No acute changes. ED Physician has reviewed and intepreted this report. GIGU Course/Dx - Course Course Of Treatment: 78 y/o F w recent E coli UTI p/w episode of fatigue and concern about her abx. - PE well appearing, NAD. Abd soft, no fevers. UA with 3 + LE already on appropriate abx. Patient is very anxious about her medications and new diet and has many questions which would better be answered by her PCP. Went over labs showing appropriate abx for sensitivity. EKG sinus, orthostatics WNL (she was concerned about fatigue from her new low carb diet). Denies other complaints. Advised to continue abx and follow up w PCP. - Diagnoses Provider Diagnoses: UTI (urinary tract infection) Discharge ED - Sign-Out/Discharge Documenting (check all that apply): Patient Departure - Discharge - Discharge Plan Condition: Stable Disposition: HOME Patient Education Materials: Urinary Tract Infection in Women (ED) Referrals: Niharika Washburn MD [Primary Care Provider] - Additional Instructions: You were seen in the emergency department for a urinary tract infection. Your currently taking Macrobid, which her Escherichia coli sensitive to. Please follow up with her primary care doctor about her recent urine culture if you have additional questions. EKG and orthostatic vital signs were normal. If any studies were not completed at the time of discharge you will be called with the relevant results. Please follow up with your primary care doctor in next 2-3 days and return to emergency department for worsening fatigue, passing out, chest pain, fevers, abdominal pain or concerning symptoms. It was a pleasure taking care of you today. - Billing Disposition and Condition Condition: STABLE Disposition: Home - Attestation Statements Document Initiated by Suzan: Yes Documenting Scribe: Misbah Whitman Provider For Whom Suzan is Documenting (Include Credential): Noah Peoples MD Scribe Attestation: Misbah Pal, scribed for Noah Peoples MD on 10/31/19 at 1012. Scribe Documentation Reviewed: Yes Provider Attestation: The documentation as recorded by the Misbah burnham accurately reflects the service I personally performed and the decisions made by , Noah Peoples MD Status of Scribe Document: Viewed
[2019-10-29 22:08] VITALS: BP 131/69
== END 2019-10-29 22:07 | disposition home or self-care (01) ==
LOC: ED 18:17
DX: N39.0 Urinary tract infection, site not specified (principal); Z88.5 Allergy status to narcotic agent
CPT/HCPCS: 81003; 93005; 99282